=== PATIENT | male | born 1980 | race Caucasian/White ===

== ENCOUNTER 2020-08-30 09:53 | Emergency (ER) | payer OTHER ==
[~2020-08-30] VITALS: Ht 180.3 cm; Wt 88.6 kg
[2020-08-30 10:34] LABS: BASO % 0.4 % (0.0-1.0); EOS # 0.2 10^3/uL (0.0-0.5); HEMATOCRIT 44.4 % (42.0-52.0); HEMOGLOBIN 15.4 g/dl (13.5-17.5); LYMPH # 3.4 10^3/uL (1.5-5.0); LYMPH % 36.6 % (24.0-44.0); MEAN CORPUSCULAR HEMOGLOBIN 31.3 pg (27.0-33.0); MEAN CORPUSCULAR HGB CONC 34.7 g/dl (32.0-36.5); MEAN CORPUSCULAR VOLUME 90.2 fl (80.0-96.0); MONO # 1.1 10^3/uL (0.0-0.8); MONO % 12.1 % (2.0-8.0); NEUTROPHILS # 4.4 10^3/uL (1.5-8.5); NEUTROPHILS % 48.5 % (36.0-66.0); PLATELET COUNT, AUTOMATED 199 10^3/uL (150-450); RED BLOOD COUNT 4.92 10^6/uL (4.30-6.10); WHITE BLOOD COUNT 9.2 10^3/uL (4.0-10.0)
[2020-08-30 10:57] LABS: ALBUMIN 3.8 GM/DL (3.2-5.2); ALT/SGPT 26 U/L (12-78); BILIRUBIN,DIRECT < 0.1 MG/DL (0.0-0.2); BILIRUBIN,TOTAL 0.5 MG/DL (0.2-1.0); LIPASE 72 U/L (73-393); TOTAL PROTEIN 6.7 GM/DL (6.4-8.2)
[2020-08-30] MEDS ORDERED: NS 1,000 ML IV ONE (11:35)
[2020-08-30] MEDS ORDERED: KETOROLAC 30 MG/ML 1ML VIAL IV ONE (11:35)
--- NOTE | 2020-08-30 11:58 | REP ---
INDICATION: L flank pain, h/o kidney stones COMPARISON: None TECHNIQUE: Axial noncontrast images from the lung bases to the pubic symphysis with coronal and sagittal reformations. This CT examination was performed using the following dose reduction techniques: Automated exposure control, adjustment of mA and/or kv according to the patient's size, and use of iterative reconstruction technique. FINDINGS: Acute left-sided obstructive uropathy including perinephric stranding and hydroureteronephrosis with a 4 mm obstructing calculus in the mid left ureter. Right kidney/ureter and bladder are normal. Liver, spleen, pancreas, gallbladder, and bilateral adrenal glands are normal. The enteric system is without obstruction or acute inflammatory process. Normal terminal ileum and appendix identified in the right lower quadrant. Scattered sigmoid diverticula without acute diverticulitis. 5 cm fat containing periumbilical hernia. Pelvis demonstrates normal bladder and age-appropriate prostate/seminal vesicles. Fat containing right inguinal hernia noted. IMPRESSION: Acute left-sided obstructive uropathy with 4 mm obstructing calculus. 5 cm fat containing periumbilical hernia. Fat containing right inguinal hernia. <Electronically signed by Alex Soliman > 08/30/20 [id number]
[2020-08-30 12:51] LABS: HEMOGLOBIN A1c 7.3 %
[2020-08-30] MEDS ORDERED: KETO10TAB PO (13:30)
[2020-08-30] MEDS ORDERED: FLOM0.4C39 PO (13:30)
[2020-08-30] MEDS ORDERED: METF500T13 PO (13:39)
[2020-08-30] MEDS ORDERED: NITR1CAP11 PO (13:41)
[2020-08-30 14:05] VITALS: BP 134/89
== END 2020-08-30 14:06 | disposition home or self-care (01) ==
LOC: M ED 09:53
DX: N20.1 Calculus of ureter (principal); N23 Unspecified renal colic; E11.65 Type 2 diabetes mellitus with hyperglycemia; K40.90 Unilateral inguinal hernia, without obstruction or gangrene, not specified as recurrent; K42.9 Umbilical hernia without obstruction or gangrene; K21.9 Gastro-esophageal reflux disease without esophagitis; Z79.899 Other long term (current) drug therapy; Z79.84 Long term (current) use of oral hypoglycemic drugs; F17.210 Nicotine dependence, cigarettes, uncomplicated
CPT/HCPCS: 74176; 80047; 80076; 81001; 83036; 83690; 85025; 96361; 96374; 99284; J1885

== ENCOUNTER 2020-12-17 06:03 | Day surgery (SDC) | payer OTHER ==
[~2020-12-17] VITALS: Ht 177.8 cm; Wt 89.4 kg
[~2020-12-17 06:03] MED LIST: CelecoXIB 400 MG CAP PO ONE; FLOM0.4C39 PO; KETO10TAB PO; LIDOCAINE 1% MDV 20ML VIAL SQ PRN; LR 1,000 ML IV ONE; METF500T13 PO; NITR1CAP11 PO; ceFAZolin SOD 2 GM in IV 1 EA IV ONE
[2020-12-17] MEDS ORDERED: MIDAZOLAM INJ 2MG/2ML VIAL (J2250 PER 1MG) As Ordered ONE (07:00)
[2020-12-17] MEDS ORDERED: fentaNYL 250 MCG/5 ML INJECTION (J3010) As Ordered ONE (07:00)
[2020-12-17] MEDS ORDERED: SUGAMMADEX SODIUM 500 MG/5 ML VIAL (BRIDION) As Ordered ONE (07:05)
[2020-12-17] MEDS ORDERED: dexameTHASONE 4 MG/ML 1ML VIAL (J1100 PER 1MG) As Ordered ONE (07:05)
[2020-12-17] MEDS ORDERED: propofoL 200 MG/20 ML VIAL As Ordered ONE (07:05)
[2020-12-17] MEDS ORDERED: ROCURONIUM BROMIDE 50 MG/5 ML VIAL As Ordered ONE ×2 (07:05→09:17)
[2020-12-17] MEDS ORDERED: LIDOCAINE 2% 100MG/5ML SDV (FOR ANES.) As Ordered ONE (07:05)
[2020-12-17] MEDS ORDERED: ONDANSETRON 4MG/2ML VIAL As Ordered ONE (07:05)
[2020-12-17] MEDS ORDERED: LIDOCAINE 1% SDV 30ML VIAL As Ordered ONE (07:17)
[2020-12-17] MEDS ORDERED: BUPIVACAINE HCL 0.25% 30ML VIAL As Ordered ONE (07:17)
[2020-12-17] MEDS ORDERED: BUPIVACAINE LIPOSOME/PF 1.3% 20ML VIAL (13.3MG/ML)(EXPAREL)(C9290 PER1MG) As Ordered ONE (07:18)
[2020-12-17] MEDS ORDERED: HumaLOG INSULIN (NovoLOG) PER UNIT SC ONE ×2 (07:30→10:30)
[2020-12-17] MEDS ORDERED: ACETAMINOPHEN 1000MG 100ML IV BTL (OFIRMEV) (J0131 PER 10MG) As Ordered ONE (07:48)
[2020-12-17] MEDS ORDERED: BUPIVACAINE HCL 0.25% 10ML VIAL As Ordered ONE (08:00)
[2020-12-17] MEDS ORDERED: METOCLOPRAMIDE INJ 10MG/2ML VIAL (J2765 PER 1) IV PRN (10:30)
[2020-12-17] MEDS ORDERED: LR 1,000 ML IV SCH (10:30)
[2020-12-17] MEDS ORDERED: KETOROLAC 30 MG/ML 1ML VIAL IV PRN (10:30)
[2020-12-17] MEDS ORDERED: PERCOCET 5MG/325MG TAB PO PRN (10:30)
[2020-12-17] MEDS ORDERED: fentaNYL 100 MCG/2 ML INJECTION (J3010) IV PRN (10:30)
[2020-12-17] MEDS ORDERED: ONDANSETRON 4MG/2ML VIAL IV PRN (10:30)
[2020-12-17] MEDS: oxyCODONE 5MG TAB PO PRN ×2 (11:11→11:44)
[2020-12-17] MEDS ORDERED: hydrALAZINE 20MG/ML 1ML VIAL (J0360 PER 20MG) IV PRN (11:50)
[2020-12-17 13:25] VITALS: BP 121/77
--- NOTE | 2020-12-21 20:43 | ROOPDOC ---
[facility] Report Of Operation Report of Operation DATE OF PROCEDURE: 12/17/20 PREPROCEDURE DIAGNOSES: right inguinal hernia, umbilical hernia. POSTPROCEDURE DIAGNOSES: Right direct inguinal hernia, Cord Lipoma, Umbilical Hernia. PROCEDURE PERFORMED: Robotic Assisted Transabdominal Preperitoneal Repair of Right inguinal hernia, umbilical hernia. SURGEON: Teofilo Durant MD LEGAL PARAPROFESSIONAL: Conchis Kaur, STAFF AIR TACTICAL OFFICER Kaur assisted me with placement of ports, management of the instruments and robotic arms on the field while I was at the surgeon's console including exchange of instruments, placement of mesh and sutures and the removal, closing of the port sites ANESTHESIA: General endotracheal anesthesia. ESTIMATED BLOOD LOSS: Approximately 20 mL. COMPLICATIONS: None. REMARKS: 40-year-old male with a right groin hernia that is symptomatic as well as an umbilical hernia. He is brought in today for repair of both hernias. FINDINGS: Roughly about a 3 cm direct hernia defect. No peritoneal defect at the internal ring but he did have cord lipoma of moderate sized to was reduced back into the preperitoneal space from the inguinal canal. 2 x 1.5 cm umbilical fascial defect containing preperitoneal fat tissue. PROCEDURE NOTE: A 15 x 10 cm large progrip mesh placed preperitoneal he to cover the inguinal defect and a 10 x 10 cm Bard soft mid weight bear polypropylene mesh placed to cover the umbilical fascial defect after closing the defect. DESCRIPTION OF PROCEDURE: Patient received 2 g of Ancef IV preoperatively for wound prophylaxis. Patient was brought to the operating room, placed supine on the operating table. Compression boots placed in both lower extremities for DVT prophylaxis. After adequate general anesthesia started, he was positioned on the table with both arms tucked. His abdomen and groin/pelvic area then prepped and draped in the usual sterile fashion. We paused for a surgical timeout using both pre-incision safety checklist to verify correct patient, procedure site and additional clinical information prior to beginning the procedure Entry to the abdomen done through a small incision at the epigastric area slightly to the right of the midline just off the subcostal area. A Veress needle is inserted on a controlled fashion. CO2 insufflation started to pressure 15 mmHg. Using the same incision a 8 mm robotic trocar then placed under direct vision of laparoscope. The insertion site was inspected for injury and none was found. Patient was then positioned on a 10 degree Trendelenburg position. I then placed 2 working ports wide apart over the left and right sides to be able to perform both the inguinal dissection as well as the umbilical dissection. The da Allison robot tower was then positioned in place and the trocars docked to the robotic arms. I then unscrubbed and took control of the camera and the laparoscopic instruments at the surgeon's console. A Forced bipolar forceps with bipolar cautery and A laparoscopic scissor with unipolar cautery was used. A bilateral transversus abdominis plane block was used using a mixture of Exparel, 20 mL 1 4% Marcaine and 20 mL normal saline. Operative Findings: On diagnostic laparoscopy, about a 3 cm opening noted over the direct hernia space on the right side; I did not see any dimpling of the peritoneum into the internal ring. On later dissection, a bulky cord lipoma is reduced back into the preperitoneal space from the inguinal canal. Incarcerated preperitoneal tissue noted pushing the umbilical cleft outward. No noticeable defect or bulging over at the left side as noted. I started with the inguinal hernia. The peritoneum was opened up about 7 cms above the superior edge of the fascial defect of the inguinal hernia starting at the medial umbilical ligament (divided) going laterally towards the level of the anterior superior iliac spine. I then started developing the peritoneal flap in itially medially towards the space of Retzius and then laterally towards the space of Bogros. The preperitoneal tissue that this within the direct hernia space was reduced. Medially the dissection was extended to past the symphysis pubis and 2 cms inferior to the pubic tubercle.I then plicated the redundant and attenuated transversalis fascia with a pursestring using a 2 OV lock without directly closing the defect avoid injury to the crossing nerves. I then completed the lateral dissection of the space of Bogros. Coming up to the peritoneal flap on top of the testicular vessels, and vas deferens, this was dissected away from the structures leaving the parietal covering of both structures intact. The vas deferens was paralyzed and the remaining fatty and fibrous attachments between the 2 spaces were divided. The peritoneal flap was then continued inferiorly to accommodate the mesh. The inguinal canal was then examined for cord lipoma and bulky cord lipoma was found and reduced back into the preperitoneal space. Part of it was divided and removed. The dissection was extended inferiorly past the femoral space. Laterally this was extended in the same plane and along the same depth as the space of Bogros. I tested the flap to make sure there is adequate space for placement of mesh without lifting or clam shelling of the mesh. I chose a 15x10 cms Parietex Pro Solderer Torch self fixating mesh. This was folded with the center of the mesh marked for positioning. This was then delivered intra- abdominally through one of the trochars. In a controlled fashion this was positioned into the preperitoneal space with the medial side towards the pubic tubercle past the symphysis pubis and the previously marked center of the mesh abutting the inferior epigastric vessels as it approaches the internal ring. The mesh was then carefully unfolded and positioned in place with adequate overlap around the internal ring to cover the hernia defects including that of the identified small right femoral hernia. This was carefully pressed onto the abdominal wall and made sure that it was flattened up. I then used interrupted sutures of 2 OV lock at the symphysis pubis, Loyd's ligament and at the rectus muscle medially to make sure that the mesh does not invaginate to the direct hernia space. I again tested closing the flap making sure that the mesh remains intact without movement or clam shelling. The peritoneal flap was then closed with a running suture of 30V LOC starting laterally going medially with tacking of the extra hernia sac towards the umbilical ligament. I then turned my attention to the umbilical hernia. I had my pediatric medical assistant adjust the camera to allow for more proximal view . I then created my peritoneal flap opening up the peritoneum at the falciform ligament roughly about 5 or 6 cm superior to the umbilical, extending this both to the left and right of the midline. I can then developing the flap as we approach the umbilical defect and passed at to create the volcano sign. The preperitoneal tissue within the umbilicus was then reduced. The anterior attachments opened up and we proceeded extending the peritoneal flap inferiorly and laterally in both sides to create an adequate pocket. I used a ruler to measure my pocket as well as the umbilical fascial defect. Umbilical fascial defect measures 2 x 1.5 cm oriented more transversely. There is minimal diastasis. I then used a #0 strata fix to close the umbilical fascial defect while tacking the bottom off the umbilical skin to recreate the dimple in the umbilical cleft. I doubled back with the suture to return it to the center for later on tacking the mesh. I had my pediatric medical assistant got a 15 x 15 cm Bard soft mesh and trimmed this to 10 x 10 cm in a circular configuration. This was placed intra-abdominally and I positioned this to center on the umbilicus and tacked this with the strata fix. I placed additional interrupted sutures to maintain the positioning of the mesh in 4 corners using the 2-0 Vicryl. I then had the pneumoperitoneum gradually lowered to as low as 8 mmHg while closing the peritoneal flap using 3 OV lock. The flap was examined for holes. I then surveyed the abdomen and pelvis for any signs of injury. Once satisfied I scrubbed back in. The instruments were removed. The abdomen was deflated. All ports were removed. The skin incisions were closed with 4-0 Monocryl in subcuticular fashion. The incisions were covered with Dermabond. The port sites were again infiltrated with local anesthesia. TEOFILO DURANT MD Dec 21, 2020 20:43
== END 2020-12-17 13:45 | disposition home or self-care (01) ==
LOC: M SDC 06:03
PROVIDERS: ATTEND Surgery
DX: K40.30 Unilateral inguinal hernia, with obstruction, without gangrene, not specified as recurrent (principal); D17.6 Benign lipomatous neoplasm of spermatic cord; K41.90 Unilateral femoral hernia, without obstruction or gangrene, not specified as recurrent; K42.0 Umbilical hernia with obstruction, without gangrene; N13.8 Other obstructive and reflux uropathy; E11.9 Type 2 diabetes mellitus without complications; F41.9 Anxiety disorder, unspecified; Z79.899 Other long term (current) drug therapy; Z79.84 Long term (current) use of oral hypoglycemic drugs; Z91.030 Bee allergy status; F17.210 Nicotine dependence, cigarettes, uncomplicated
CPT/HCPCS: 49650; C1781; C9290; J0131; J0690; J1100; J1885; J2250; J2405; J3010; S2900